=== PATIENT | female | born 1945 | race Caucasian/White ===

== ENCOUNTER → 2017-11-25 | Day surgery (SDC) | payer MEDICARE ==
[~2017-11-25] MED LIST: APREPITANT 40 MG CAP ONE; BUPIVACAINE HCL PF 0.25% 30 ML VIAL ONE; ENAL10TA7 PO; LEVO100T60 PO; METF850T OR; MIDAZOLAM HCL 2 MG/2 ML VIAL ONE; MORPHINE SULFATE 4 MG/ML INJ ONE; NIAS10004 PO; SODIUM CHLOR 0.9% 1000 ML INJ 1,000 ML IV ONE; TAB-TAB PO; TOPR50TA PO; VITA500S3 SL; ceFAZolin 2 GM PREMIX 50 ML ONE
--- NOTE | 2017-11-27 17:00 | TN ---
cc: LULA KINNEY DPM DATE OF SURGERY: 11/25/2017. INDICATIONS FOR THE PROCEDURE: The patient presented to my clinic complaining of continued pain to the left lateral ankle. She had previous MRI approximately a year prior showing a tear of the peroneus brevis tendon. She underwent immobilization on several occasions as well as bracing, physical therapy and none of which she had reduce her pain to this area. She had previously had surgery scheduled with a doctor in our practice who has since left and came to me to discuss surgical options. After repeat MRI showed increased tearing to the peroneus brevis tendon we discussed different procedure options to either repair versus peroneals STOP procedure to remove the diseased portion of the tendon and she agreed to proceed with repair of the left peroneus brevis tendon surgery. I discussed with the patient the risks, benefits, potential complications with the patient in great detail and she agreed to move forward with surgery. No guarantees were given. She was seen in preop holding by myself, nursing staff and anesthesia where the correct patient side and site were all confirmed to be correct in the left lower extremity. After timeouts were performed as per facility protocol, attention was directed to the left lower extremity which was prepped and draped in normal sterile fashion followed by attention directed to the lateral aspect of the left ankle where a lateral curvilinear incision was utilized in order to gain access to the peroneal tendon from just posterior to the lateral malleolus down to approximately 2 cm proximal to the insertion peroneus brevis just distal to the lateral malleolus after care was taken to avoid neurovascular structures. The peroneus brevis tendon was noted to be found with a longitudinal split in this area which spanned approximately 3 cm in length. The tear was identified to the ends where normal tendon was noted were sutured to the peroneus longus tendon and the diseased portion of the tendon was removed. The peroneus longus tendon was examined and noted to be within normal limits without tear. There was no large peroneal tubercle noted to the lateral aspect of the calcaneus. The posterior aspect of the lateral malleolus was smooth and without any bony spurring. Following this, a rongeur was utilized in order to remove a small hypertrophic area of bone from the lateral aspect of the fifth metatarsal base. Following this, the incision area was copiously irrigated followed by closure with 3-0 Vicryl followed by closure with 2-0 nylon. Of note, the peroneus brevis tendons remnants were attached to the peroneus longus tendon using 2-0 FiberWire suture. Following this closure consisting of 3-0 Vicryl followed by 2-0 nylon were utilized in order to close the surgical wound. A dressing consisting of Xeroform, 4x4s, ABD, cast padding and a short posterior splint were applied to left lower extremity. She tolerated the procedure and anesthesia well without complications and was taken back to post-anesthesia care unit with vital signs stable and vascular status intact to the remainder of the left foot. She will be non-weightbearing to the left lower extremity. Follow up in clinic in one week for dressing change. SURGEON: Lula Kinney DPM. RADIAGRAPH OPERATOR: Staff. PREOPERATIVE DIAGNOSIS: Left peroneus brevis tear. POSTOPERATIVE DIAGNOSIS: Left peroneus brevis tear. OPERATIVE PROCEDURE PERFORMED: Repair left peroneus brevis tendon tear. PROPHYLAXIS: 2 grams Ancef IV preop. PATHOLOGY: Left peroneus brevis tendon. ANESTHESIA: General endotracheal anesthesia plus 20 mL 0.25% Marcaine plain. HEMOSTASIS: Left calf tourniquet at 250 mmHg times 35 minutes. ESTIMATED BLOOD LOSS: Minimal. CONDITION: Stable to the post-anesthesia care unit. DISPOSITION: Non-weightbearing left lower extremity. FOLLOW UP: Follow up in clinic in one week. Lula Kinney /JCC /4:33 PM /4:44 PM
== END | disposition home or self-care (01) ==
LOC: ESDC 06:13
PROVIDERS: ATTEND Podiatrist Foot & Ankle Surgery
DX: S86.312A Strain of muscle(s) and tendon(s) of peroneal muscle group at lower leg level, left leg, initial encounter (principal)
CPT/HCPCS: 01470; 28200; 88305; J0690; J2250; J2270; J3010; J7030; J8501